=== PATIENT | female | born 1970 | race Caucasian/White ===

== ENCOUNTER 2018-10-10 10:25 | Observation (INO) | payer OTHER ==
[2018-10-09 16:01] VITALS: BMI 27.4
[2018-10-10] VITALS (29 sets, daily range): BP systolic 126–177; BP diastolic 70–92; PULSE 60–90; RESP 16–38; Ht 152.4 cm; Wt 63.1 kg
[~2018-10-10] VITALS: Ht 152.4 cm; Wt 63.1 kg
[2018-10-10] MEDS ORDERED: SIMV20TA PO (11:33)
[2018-10-10] MEDS ORDERED: TOLT2CAP22 PO (11:33)
[2018-10-10] MEDS ORDERED: LIDOCAINE 2% (SDV) 5 ML INJ ONE (12:25)
[2018-10-10] MEDS ORDERED: MEPERIDINE 100 MG INJ ONE (12:25)
[2018-10-10] MEDS ORDERED: PROPOFOL 20 ML ONE (12:25)
[2018-10-10] MEDS ORDERED: GLYCOPYRROLATE 0.4 MG INJ ONE ×2 (12:25→12:30)
[2018-10-10] MEDS ORDERED: NEOSTIGMINE 3 MG/3 ML SYRINGE ONE (12:25)
[2018-10-10] MEDS ORDERED: ROCURONIUM 50 MG INJ ONE (12:25)
[2018-10-10] MEDS ORDERED: SUCCINYLCHOLINE CHLORIDE 100 MG/5 ML SYG IV ONE (12:25)
[2018-10-10] MEDS ORDERED: METOCLOPRAMIDE 10 MG INJ ONE (12:30)
[2018-10-10] MEDS ORDERED: ONDANSETRON 4 MG INJ ONE (12:30)
[2018-10-10] MEDS ORDERED: CEFAZOLIN 1 GM INJ ONE (12:30)
--- NOTE | 2018-10-10 13:06 | PREAC ---
Date/Time of Note Date/Time of Note DATE: 10/10/18 TIME: 13:05 Anesthesia Eval and Record Evaluation Time Pre-Procedure Interview DATE: 10/10/18 TIME: 13:05 Age 48 Sex female NPO: 8 hrs Preoperative diagnosis Cholelithiasis Planned procedure Laparoscopic cholecystectomy Past Medical History Past Medical History: Includes Cardio: Dyslipidemia Surgery & Anesthesia Issues No known issue Meds Anticoagulation: No Beta Florence within 24 hr: No Reason Beta Florence not given: Pt. not on B-Florence Reported Medications Simvastatin* (Zocor*) 20 Mg Tablet, 20 MG PO QHS, #30 TAB 10/10/18 Tolterodine Tartrate* (Tolterodine Tartrate* ER) 2 Mg Cap.er.24h, 2 MG PO DAILY, #30 CAP 10/10/18 Meds reviewed: Yes Allergies Coded Allergies: No Known Allergy (Unverified , 10/10/18) Allergies Reviewed: Yes Labs/Studies Labs Reviewed: Reviewed by anesthesiologist test: Negative Pre-procedure Exam Last vitals Vital Signs Date Temp Pulse Resp B/P (MAP) Pulse Ox O2 O2 Flow FiO2 Time Delivery Rate 10/10/18 98.1 75 16 128/74 95 11:20 (92) Airway: Adequate mouth opening Mallampati: Mallampati II Teeth: Normal Lung: Normal Heart: Normal ASA Physical Status ASA physical status: 2 Emergency: None Planned Anesthetic General/MAC: ETT Planned Pain Management Parenteral pain med Pre-operative Attestations Prior to commencing anesthesia and surgery, the patient was re-evaluated, there was verification of: *The patient's identity *The results of appropriate recent lab work and preoperative vital signs *The above evaluation not changing prior to induction *Anesthetic plan, risk benefits, alternative and complications discussed with patient/family; questions answered; patient/family understands, accepts and wishes to proceed. XAVIER EUBANKS MD Oct 10, 2018 13:06
[2018-10-10] MEDS ORDERED: BUPIVACAINE 0.25% (MPF) 30 ML INJ ONE (13:09)
[2018-10-10] MEDS ORDERED: EPHEDrine SULFATE 50 MG/5 ML SYG IV PRN (14:00)
[2018-10-10] MEDS ORDERED: HYDROmorphONE 1 MG/5 ML IV SYRINGE IV PRN ×3 (14:00)
[2018-10-10] MEDS ORDERED: FENTAnyl 50 MCG/ML VIAL IV PRN ×2 (14:00)
[2018-10-10] MEDS ORDERED: LABETALOL HCL 20MG INJ IV PRN (14:00)
[2018-10-10] MEDS ORDERED: METOCLOPRAMIDE 10 MG INJ IV PRN (14:00)
[2018-10-10] MEDS ORDERED: MEPERIDINE 25 MG INJ IV PRN (14:00)
[2018-10-10] MEDS ORDERED: DIPHENHYDRAMINE 50 MG INJ IV PRN (14:00)
[2018-10-10] MEDS ORDERED: OXYCODONE/ACETAMINOPHEN (5/325) TAB PO PRN ×2 (14:00)
[2018-10-10] MEDS ORDERED: MIDAZOLAM 1 MG/ML 2 ML INJ IV PRN (14:00)
[2018-10-10] MEDS ORDERED: hydrALAzine 20 MG INJ IV PRN (14:00)
--- NOTE | 2018-10-10 14:16 | OPR ---
Date/Time of Note Date/Time of Note DATE: 10/10/18 TIME: 14:06 Operative Report Procedure Date: Oct 10, 2018 Preoperative Diagnosis symptomatic gallstones Postoperative Diagnosis same Operation/Procedure Performed 1. laparoscopic cholecystectomy 2. therapeutic injection of subcutaneous local anesthesia Surgeon see signature line [employer] none Anesthesia Type: general Estimated Blood Loss: 0 - 10 ml's Transfusion none Specimen gallbladder Grafts/Implants none Complications none Pt Condition Post Procedure: stable Indications This is a 48-year-old female with symptomatic gallstones and gallbladder polyp. She had pain previously and request surgical excision of her gallbladder. Risks alternatives benefits and percent were discussed the patient. Patient expressed understanding consents to the operation. Procedure Description Patient is taken to the OR and prepped and draped in usual sterile fashion. Surgical time was performed. IV antibiotics given. Infraumbilical transverse incision was made with a 15 blade. Dissection with cautery was carried onto the fascia. The fascia was grasped with Man's and divided with curved Martinez scissors. 0 Vicryl U stitches placed into the fascia. Beltran trocar was introduced. Pneumoperitoneum was established. Midepigastric 12 mm optical trocar was placed under direct position. Right upper quadrant upper flank 5 mm optical trochars were placed under direct position. Upon initial inspection there are some adhesions to the gallbladder which are taken down bluntly. The gallbladder was grasped the fundus and retracted lateral cephalad direction. [place] graspers were used to dissect out the cystic duct and cystic artery. The critical view was established. The cystic duct is divided to close proximally clipped distal and the division performed laparoscopic scissors. The cystic artery was divided 3 clips proximal to distal and the division was performed laparoscopic scissors. The gallbladder was taken off the gallbladder bed. Good hemostasis established. The gallbladder is retrieved using Endo Catch bag. Ports removed under direct position. 0 Vicryl sutures tied down. Skin is closed using skin brandy. Therapeutic taste local anesthesia was injected at the incision site. Dry dressings were applied. Bronwyn VIRAMONTES Oct 10, 2018 14:16
[2018-10-10] MEDS ORDERED: HYDROCODONE/APAP (5/325) TAB PO ONE (14:30)
[2018-10-10] MEDS: ONDANSETRON 4 MG INJ IV PRN ×3 (15:02→23:13)
--- NOTE | 2018-10-10 15:06 | PAC ---
Date/Time of Note Date/Time of Note DATE: 10/10/18 TIME: 15:06 Post-Anesthesia Notes Post-Anesthesia Note Last documented vital signs Vital Signs Date Temp Pulse Resp B/P (MAP) Pulse Ox O2 O2 Flow FiO2 Time Delivery Rate 10/10/18 68 27 174/88 97 Mask 6.0 14:46 (116) 10/10/18 98.7 14:16 Activity: WNL Respiratory function: WNL Cardiovascular function: WNL Mental status: Baseline Pain reasonably controlled: Yes Hydration appropriate: Yes Nausea/Vomiting absent: Yes XAVIER EUBANKS MD Oct 10, 2018 15:06
[2018-10-10] MEDS: FENTAnyl 50 MCG/ML VIAL IV PRN ×2 (15:13→15:26)
[2018-10-10] MEDS ORDERED: HYDROCODONE/APAP (5/325) TAB PO PRN (16:30)
[2018-10-10] MEDS: SOD CHLORIDE 0.45% 1,000 ML IV SCH (18:13)
[2018-10-10] MEDS: morphine 2 MG INJ IV PRN (19:43)
[2018-10-10] MEDS ORDERED: ACETAMINOPHEN 325 MG TAB PO PRN (22:30)
[2018-10-11] VITALS: BP 129/69; PULSE 83; RESP 20
[2018-10-11] MEDS: HYDROCODONE/APAP (5/325) TAB PO PRN (00:53)
[2018-10-11] MEDS: morphine 2 MG INJ IV PRN ×4 (02:03→23:24)
[2018-10-11 04:00] VITALS: BP 122/65; PULSE 79; RESP 17
[2018-10-11] MEDS: ONDANSETRON 4 MG INJ IV PRN ×2 (05:33→23:24)
[2018-10-11] MEDS: SOD CHLORIDE 0.45% 1,000 ML IV SCH ×2 (06:44→18:13)
[2018-10-11 08:22] VITALS: BP 135/79; PULSE 70; RESP 19
[2018-10-11] MEDS: TOLTERODINE (SR) 2 MG CAP PO SCH (09:00)
--- NOTE | 2018-10-11 10:25 | HP ---
Date/Time of Note Date/Time of Note DATE: 10/11/18 TIME: 10:22 Assessment/Plan VTE Prophylaxis Risk score (from Ns)>0 risk: 5 SCD applied (from Ns): No SCD contraindicated: other Pharmacological prophylaxis: LMWH Lines/Catheters IV Catheter Type (from Nrsg): Peripheral IV Urinary Cath still in place: No Assessment/Plan Hospital Course 1) cholelithiasis - s/p laparascopic cholecystectomy HPI/ROS Admit Date/Time Admit Date/Time Oct 10, 2018 at 16:05 Hx of Present Illness Patient with hyperlipidemia comes in for elective cholecystetomy for symptomatic gallstones. Patient tolerated laparoscopic procedure and is recovering from surgical procedure. PMH/Family/Social Past Medical History Medical History: high cholesterol Medications Current Medications Morphine Sulfate (morphine) 2 mg Q2H PRN IV SEVERE PAIN LEVEL 7-10 Last administered on 10/11/18at 08:22; Admin Dose 2 MG; Start 10/10/18 at 16:30 Sodium Chloride 1,000 ml @ 80 mls/hr [id number] IV Last administered on 10/11/18at 06:44; Admin Dose 80 MLS/HR; Start 10/10/18 at 16:30 Acetaminophen/ Hydrocodone Bitart ([place] (5/325)) 1 tab Q4H PRN PO MODERATE PAIN LEVEL 4-6; Start 10/10/18 at 16:30 Acetaminophen/ Hydrocodone Bitart ([place] (5/325)) 2 tab Q4H PRN PO MODERATE PAIN LEVEL 4-6 Last administered on 10/11/18at 00:53; Admin Dose 2 TAB; Start 10/10/18 at 16:30 Ondansetron HCl (Zofran Inj) 4 mg Q6H PRN IV NAUSEA AND/OR VOMITING Last adm inistered on 10/11/18at 05:33; Admin Dose 4 MG; Start 10/10/18 at 22:30 Acetaminophen (Tylenol Tab) 650 mg Q4H PRN PO MILD PAIN(1-3)OR ELEVATED TEMP Last administered on 10/10/18at 23:13; Admin Dose 650 MG; Start 10/10/18 at 22:30 Tolterodine Tartrate (Detrol La) 2 mg DAILY PO ; Start 10/11/18 at 09:00 Atorvastatin Calcium (Lipitor) 10 mg QHS PO ; Start 10/11/18 at 21:00 Coded Allergies: No Known Allergy (Unverified , 10/10/18) Social History Smoking Status: Never smoker Exam/Review of Systems Vital Signs Vitals Vital Signs Date Temp Pulse Resp B/P (MAP) Pulse Ox O2 O2 Flow FiO2 Time Delivery Rate 10/11/18 98.5 70 19 135/79 99 Room Air 08:22 (97) 10/10/18 2.0 15:21 Intake and Output 10/10/18 10/10/18 10/11/18 1515:00 23:00 07:00 IntakeIntake Total 400 ml 200 ml 1780 ml OutputOutput Total 10 ml 700 ml BalanceBalance 390 ml 200 ml 1080 ml Exam Constitutional: well developed Head: normocephalic, atraumatic Neck: supple Respiratory: clear to auscultation Cardiovascular: regular rate and rhythm Gastrointestinal: soft, non-tender Extremities: normal pulses HARJIT GARCIA Oct 11, 2018 10:24
[2018-10-11] MEDS: METOCLOPRAMIDE 10 MG INJ IV PRN ×2 (11:00→17:31)
[2018-10-11 15:02] VITALS: BP 138/81; PULSE 76; RESP 19
--- NOTE | 2018-10-11 16:34 | PN ---
DATE: 10/11/2018 Postop day #1, status post laparoscopic cholecystectomy. SUBJECTIVE: The patient has been complaining of nausea, vomiting, dizziness, and too much pain in bi lateral subcostal. OBJECTIVE: GENERAL: Awake, alert, lying down in the bed. VITAL SIGNS: Temperature 98.5, heart rate 72, respirations 19, blood pressure 135/79, saturation 99% on room air. HEART: Regular. LUNGS: Clear. Decreased breathing sound at bases. ABDOMEN: Not rigid. Bowel sound is present. EXTREMITIES: Legs negative. ASSESSMENT AND PLAN: Postop day #1. The patient has been nauseous and when she got out of bed to go to the bathroom, she has been dizzy. She vomited actually in the morning after breakfast; therefore , it appears that the patient needs more observation and so we are going to keep her overnight. If t he problem of nausea, vomiting, dizziness get resolved by tomorrow, then we can discharge the patient tomorrow. Dictated By: BLESSING AMEZCUA MD PS/NTS Conf#: [id number] DID#: [id number] CC: HANG VIRAMONTES MD;*EndCC*
[2018-10-11 19:25] VITALS: BP 148/89; PULSE 78; RESP 18
[2018-10-11 19:45] VITALS: BP 124/70; PULSE 74
[2018-10-11] MEDS ORDERED: TOLTERODINE (SR) 2 MG CAP PO SCH (21:00)
[2018-10-11] MEDS ORDERED: SPECIAL NON-STANDARD MEDICATION PO SCH (21:00)
[2018-10-11] MEDS ORDERED: ATORVASTATIN 10 MG TAB PO SCH ×2 (21:00)
[2018-10-12 02:15] VITALS: BP 143/79; PULSE 84; RESP 20
[2018-10-12 02:40] VITALS: BP 127/71; PULSE 70
[2018-10-12] MEDS: SOD CHLORIDE 0.45% 1,000 ML IV SCH ×2 (06:00→08:07)
[2018-10-12 07:33] VITALS: BP 136/78; PULSE 86; RESP 18
[2018-10-12] MEDS: TOLTERODINE (SR) 2 MG CAP PO SCH (09:29)
--- NOTE | 2018-10-12 11:57 | PN ---
Date/Time of Note Date/Time of Note DATE: 10/12/18 TIME: 11:57 Assessment/Plan VTE Prophylaxis Risk score (from Ns)>0 risk: 3 SCD applied (from [facility]): No SCD contraindicated: other Pharmacological prophylaxis: LMWH Lines/Catheters IV C[facility]ter Type (from [facility]): Peripheral IV Urinary Cath still in place: No Assessment/Plan Hospital Course 1) cholelithiasis - s/p laparascopic cholecystectomy Result Diagram: 10/12/182 10/12/18440 Results 24hrs Laboratory Tests Test 10/12/18 04:41 10/12/18 04:42 Sodium Level 145 H Potassium Level 4.0 Chloride Level 104 Carbon Dioxide Level 31 Anion Gap 10 Blood Urea Nitrogen 12 Creatinine 0.75 Est Glomerular Filtrat Rate mL/min > 60 Glucose Level 122 Calcium Level 9.2 Total Bilirubin 0.8 Direct Bilirubin 0.00 Indirect Bilirubin 0.8 Aspartate Amino Transf (AST/SGOT) 56 H Alanine Aminotransferase (ALT/SGPT) 77 H Alkaline Phosphatase 67 Total Protein 7.1 Albumin 3.9 Globulin 3.20 Albumin/Globulin Ratio 1.21 White Blood Count 12.9 H Red Blood Count 4.18 L Hemoglobin 13.3 Hematocrit 39.8 Mean Corpuscular Volume 95.2 Mean Corpuscular Hemoglobin 31.8 Mean Corpuscular Hemoglobin Concent 33.4 Red Cell Distribution Width 12.7 Platelet Count 228 Mean Platelet Volume 9.6 Immature Granulocytes % 0.400 Neutrophils % 67.3 Lymphocytes % 23.3 Monocytes % 8.3 Eosinophils % 0.5 Basophils % 0.2 Nucleated Red Blood Cells % 0.0 Immature Granulocytes # 0.050 H Neutrophils # 8.6 H Lymphocytes # 3.0 H Monocytes # 1.1 H Eosinophils # 0.1 Basophils # 0.0 Nucleated Red Blood Cells # 0.0 Subjective 24 Hr Interval Summary Free Text/Dictation Patient is doing better Exam/Review of Systems Exam Vitals Vital Signs Date Temp Pulse Resp B/P (MAP) Pulse Ox O2 O2 Flow FiO2 Time Delivery Rate 10/12/18 98.6 86 18 136/78 93 07:33 (97) 10/11/18 Room Air 15:02 10/10/18 2.0 15:21 Intake and Output 10/11/18 10/11/18 10/12/18 1515:00 23:00 07:00 IntakeIntake Total 600 ml 1660 ml 1160 ml OutputOutput Total 750 ml 250 ml BalanceBalance -150 ml 1410 ml 1160 ml Constitutional: well developed Head: normocephalic, atraumatic Neck: supple Respiratory: clear to auscultation Cardiovascular: regular rate and rhythm Gastrointestinal: soft, non-tender Extremities: normal pulses Results Results 24hrs Laboratory Tests Test 10/12/18 04:41 10/12/18 04:42 Sodium Level 145 H Potassium Level 4.0 Chloride Level 104 Carbon Dioxide Level 31 Anion Gap 10 Blood Urea Nitrogen 12 Creatinine 0.75 Est Glomerular Filtrat Rate mL/min > 60 Glucose Level 122 Calcium Level 9.2 Total Bilirubin 0.8 Direct Bilirubin 0.00 Indirect Bilirubin 0.8 Aspartate Amino Transf (AST/SGOT) 56 H Alanine Aminotransferase (ALT/SGPT) 77 H Alkaline Phosphatase 67 Total Protein 7.1 Albumin 3.9 Globulin 3.20 Albumin/Globulin Ratio 1.21 White Blood Count 12.9 H Red Blood Count 4.18 L Hemoglobin 13.3 Hematocrit 39.8 Mean Corpuscular Volume 95.2 Mean Corpuscular Hemoglobin 31.8 Mean Corpuscular Hemoglobin Concent 33.4 Red Cell Distribution Width 12.7 Platelet Count 228 Mean Platelet Volume 9.6 Immature Granulocytes % 0.400 Neutrophils % 67.3 Lymphocytes % 23.3 Monocytes % 8.3 Eosinophils % 0.5 Basophils % 0.2 Nucleated Red Blood Cells % 0.0 Immature Granulocytes # 0.050 H Neutrophils # 8.6 H Lymphocytes # 3.0 H Monocytes # 1.1 H Eosinophils # 0.1 Basophils # 0.0 Nucleated Red Blood Cells # 0.0 Medications Medication Current Medications Morphine Sulfate (morphine) 2 mg Q2H PRN IV SEVERE PAIN LEVEL 7-10 Last administered on 10/11/18at 23:24; Admin Dose 2 MG; Start 10/10/18 at 16:30 Sodium Chloride 1,000 ml @ 80 mls/hr [id number] IV Last administered on 10/12/18at 08:07; Admin Dose 80 MLS/HR; Start 10/10/18 at 16:30 Acetaminophen/ Hydrocodone Bitart ([place] (5/325)) 1 tab Q4H PRN PO MODERATE PAIN LEVEL 4-6; Start 10/10/18 at 16:30 Acetaminophen/ Hydrocodone Bitart ([place] (5/325)) 2 tab Q4H PRN PO MODERATE PAIN LEVEL 4-6 Last administered on 10/11/18 00:53; Admin Dose 2 TAB; Start 10/10/18 at 16:30 Ondansetron HCl (Zofran Inj) 4 mg Q6H PRN IV NAUSEA AND/OR VOMITING Last administered on 10/11/18 23:24; Admin Dose 4 MG; Start 10/10/18 at 22:30 Acetaminophen (Tylenol Tab) 650 mg Q4H PRN PO MILD PAIN(1-3)OR ELEVATED TEMP Last administered on 10/10/18 23:13; Admin Dose 650 MG; Start 10/10/18 at 22:30 Tolterodine Tartrate (Detrol La) 2 mg DAILY PO Last administered on 10/12/18 09:29; Admin Dose 2 MG; Start 10/11/18 at 09:00 Atorvastatin Calcium (Lipitor) 10 mg QHS PO Last administered on 10/11/18 20:45; Admin Dose 10 MG; Start 10/11/18 at 21:00 Metoclopramide HCl (Reglan) 10 mg Q6H PRN IV NAUSEA Last administered on 10/11/18 17:31; Admin Dose 10 MG; Start 10/11/18 at 10:46 Tolterodine Tartrate (Detrol La) 2 mg HS PO Last administered on 10/11/18 20:45; Admin Dose 2 MG; Start 10/11/18 at 21:00 HARJIT GARCIA 10, 2019 11:57
[2018-10-12] MEDS: HYDROCODONE/APAP (5/325) TAB PO PRN (14:45)
[2018-10-12 16:38] VITALS: BP 118/65; PULSE 83; RESP 18
--- NOTE | 2018-10-12 17:48 | PN ---
DATE: 10/12/2018 Postop day #2 status post laparoscopic cholecystectomy. SUBJECTIVE: Feels better. No nausea, no vomiting. Has been out of bed. Dizziness is much less. T olerating food. No fever, no chills. OBJECTIVE: GENERAL: Alert, awake, oriented. VITAL SIGNS: Temperature maximum 99.4, but repeat is 98.2, heart rate is 83, respiration 18, blood p ressure 118/65, saturation 99% on room air. HEART: Regular. LUNGS: Clear. ABDOMEN: Soft. Bowel sounds are present. EXTREMITIES: Legs have no calf tenderness. Nonpitting edema. LABORATORY DATA: WBC 12,900 with 67% segmented which is normal differential. Hemoglobin is 13.3, he matocrit 39.8. Chemistry: Sodium, potassium are normal. BUN and creatinine are normal. Bilirubin is 0.8, normal. Liver enzymes: AST slightly elevated at 56, ALT slightly elevated at 77, alkaline p hosphatase 67, normal. ASSESSMENT AND PLAN: The patient has laparoscopic cholecystectomy, postop day #2. Yesterday, the pa tient was experiencing dizziness, nausea and occasional vomiting, but today is much better, toleratin g diet, no nausea, no vomiting, has been out of bed and walk around; therefore, the patient can be di scharged home to be followed by Dr. Fang in the office. The patient is to call the office on Saturday a nd make an appointment for followup. Instructions for care of the wound and also prescription for pa in was given to the patient. Dictated By: BLESSING AMEZCUA MD PS/NTS Conf#: [id number] DID#: [id number] CC: DHARA VALDEZ MD; HANG FANG MD;*EndCC*
== END 2018-10-12 17:30 | disposition home or self-care (01) ==
LOC: SDS 10:25 → INTOOBSV 16:05 → REC 16:05 → MS1 17:10
PROVIDERS: ADMIT Surgery; ATTEND Internal Medicine
DX: K80.20 Calculus of gallbladder without cholecystitis without obstruction (principal)
CPT/HCPCS: 47562; 80053; 85025; 88304; J0690; J1170; J2175; J2270; J2405; J2710; J2765; J3010; Z7500; Z7512; Z7610; 99217; G0378